=== PATIENT | male | born 1955 | race Caucasian/White ===

== ENCOUNTER 2023-07-07 07:40 | Outpatient (CLI) | payer BC ==
[~2023-07-07 07:40] MED LIST: EZET10TA6 PO; GABA300C PO; HYDR-3972 PO; LISI40TA13 PO; PRAV40TA3 PO; SILD100T70 PO; ZOLP10TA PO
[2023-07-07 08:38] LABS: ALANINE AMINOTRANSFERASE 69 U/L (12-78); ALBUMIN 4.2 G/DL (3.4-5.0); ALBUMIN/GLOBULIN RATIO 1.4 (1.1-1.5); ALKALINE PHOSPHATASE 58 IU/L (46-116); ANION GAP 10 (8-16); ASPARTATE AMINO TRANSFERASE 59 U/L (10-37); BILIRUBIN,TOTAL 0.9 MG/DL (0.1-1.0); BLOOD UREA NITROGEN 17 MG/DL (7-18); CALCIUM 8.9 MG/DL (8.5-10.1); CHLORIDE 105 MMOL/L (99-107); CHOL/HDL RATIO 3.5 (0.00-4.99); CHOLESTEROL 146 MG/DL (0-200); CREATININE 0.85 MG/DL (0.60-1.10); GLUCOSE 123 MG/DL (70-104); HDL CHOLESTEROL 42 MG/DL (35-60); LDL CHOLESTEROL 81 MG/DL (50-100); POTASSIUM 4.5 MMOL/L (3.5-5.1); SODIUM 141 MMOL/L (135-145); TOTAL CARBON DIOXIDE 25.9 MMOL/L (24-32); TOTAL PROTEIN 7.3 G/DL (6.4-8.2); TRIGLYCERIDES 142 MG/DL (20-135); eGFR 90 ML/MIN
== END 2023-07-07 23:59 | disposition home or self-care (01) ==
LOC: LAB 07:40
PROVIDERS: ATTEND Internal Medicine Interventional Cardiology
DX: E78.5 Hyperlipidemia, unspecified (principal); I10 Essential (primary) hypertension
CPT/HCPCS: 36415; 80053; 80061

== ENCOUNTER 2023-07-07 07:47 | Day surgery (SDC) | payer BC ==
[2023-07-03 13:27] LABS: BASOPHILS # (AUTO) 0.1 X10'3 (0-0.2); BASOPHILS % (AUTO) 1.1 % (0-1); EOSINOPHILS # (AUTO) 0.2 X10'3 (0-0.9); EOSINOPHILS % (AUTO) 3.3 % (0-6); LYMPHOCYTES % (AUTO) 37.2 % (21-51); MEAN CORPUSCULAR HEMOGLOBIN 31.3 PG (27.0-31.0); MEAN CORPUSCULAR HGB CONC 33.9 g/dL (33.0-36.5); MEAN CORPUSCULAR VOLUME 92.1 FL (78-98); MEAN PLATELET VOLUME 8.1 FL (7.4-10.4); MONOCYTES # (AUTO) 0.7 X10'3 (0-0.9); MONOCYTES % (AUTO) 13.5 % (2-12); NEUTROPHILS # (AUTO) 2.4 X10'3 (1.8-7.7); NEUTROPHILS % (AUTO) 44.9 % (42-75); PRE OP HEMATOCRIT 45.1 % (42.0-52.0); PRE OP HEMOGLOBIN 15.3 g/dL (14.0-17.9); PRE OP PLATELET COUNT 207 X10'3 (140-440); PRE OP WHITE BLOOD COUNT 5.3 10'3 (4.8-10.8); RED CELL DISTRIBUTION WIDTH 12.8 % (11.5-14.5)
[2023-07-03 13:43] LABS: ALBUMIN/GLOBULIN RATIO 1.2 (1.1-1.5); ALKALINE PHOSPHATASE 59 IU/L (46-116); BLOOD UREA NITROGEN 13 MG/DL (7-18); BUN/CREATININE RATIO 15.5 (10.0-20.0); CALCIUM 9.1 MG/DL (8.5-10.1); CHLORIDE 106 MMOL/L (99-107); CREATININE 0.84 MG/DL (0.60-1.10); PRE OP ALT 68 U/L (30-65); PRE OP ANION GAP 10 (8-16); PRE OP AST 53 U/L (10-37); PRE OP BILIRUB, TOTAL 0.5 MG/DL (0.0-1.0); PRE OP GLUCOSE 102 MG/DL (70-104); PRE OP POTASSIUM 4.2 MMOL/L (3.4-5.1); PRE OP SODIUM 142 MMOL/L (135-145); TOTAL CARBON DIOXIDE 26.3 MMOL/L (24-32); TOTAL PROTEIN 7.4 G/DL (6.4-8.2); eGFR > 90 ML/MIN
[~2023-07-07] VITALS: Ht 188 cm; Wt 126.5 kg
[2023-07-07] VITALS (8 sets, daily range): BP systolic 112–149; BP diastolic 60–88; PULSE 67–82; RESP 12–18; TEMP 97.4; O2SAT 95
[2023-07-07] MEDS: cefazolin 2gm/D5W 100mL 100 ML IV ONE (05:30)
[2023-07-07] MEDS: famotidine 20mg tablet PO ONE (08:53)
[2023-07-07] MEDS: ringers solution, lacted 1,000 ML IV SCH (08:55)
[2023-07-07] MEDS ORDERED: morphine 4 MG/ML inj SYRINge IV PRN (09:20)
[2023-07-07] MEDS ORDERED: morphine 2 MG/ML inj. syringe IV PRN (09:20)
[2023-07-07] MEDS ORDERED: labetalol 20mg/4ml (5mg/ml) syringe IV PRN (09:20)
[2023-07-07] MEDS ORDERED: ringers solution, lacted 1,000 ML IV SCH (09:20)
[2023-07-07] MEDS ORDERED: ondansetron/PF 4mg/2ml inj IV PRN (09:20)
[2023-07-07] MEDS ORDERED: MIDAZolam 1 MG/ML 5ML VIAL ONE (10:25)
[2023-07-07] MEDS ORDERED: propofol 10mg/ml 20ml vial IV ONE (10:39)
[2023-07-07] MEDS: BUPIVAcaine/PF 2.5mg/ml (0.25%) 10ml vial ONE (10:51)
[2023-07-07] MEDS: LIDOcaine 2% (20mg/ml) 5ml vial ONE (10:51)
[2023-07-08] MEDS ORDERED: cefazolin 2gm/D5W 100mL 100 ML IV ONE (05:30)
== END 2023-07-07 11:45 | disposition home or self-care (01) ==
LOC: PAS 07:47
PROVIDERS: ATTEND Orthopaedic Surgery Hand Surgery
DX: G56.02 Carpal tunnel syndrome, left upper limb (principal); I10 Essential (primary) hypertension; E66.9 Obesity, unspecified; Z79.891 Long term (current) use of opiate analgesic; Z79.899 Other long term (current) drug therapy; Z90.49 Acquired absence of other specified parts of digestive tract; Z90.89 Acquired absence of other organs; Z98.890 Other specified postprocedural states; Z68.35 Body mass index [BMI] 35.0-35.9, adult
CPT/HCPCS: 29848; 36415; 80053; 82948; 85025; J0690; J2250; J2704; J3490; J7030; J7120; Z7506; Z7512; A4215; A6449; A7000